=== PATIENT | female | born 1940 | race Caucasian/White ===

== ENCOUNTER → 2016-12-20 | Outpatient (CLI) | payer MEDICARE, OTHER ==
[~2016-12-20] MED LIST: AMLODIPINE10 MG PO; ANUSOL-HC25 MG R; ATENOLOL25 MG PO; ATENOLOL50 M1 PO; AVPAK METFORMI500 MG PO; CALTRATE 600 +1 TAB PO; GLUCOMETER; GLUCTESTSTRIP; HYDROCHLOROTHIA25 M1 PO; LEVEMIR FLEX100 U/ML SC; LISINOPRIL HCTZ1 TA1 PO; LOVASTATIN40 MG PO; NEURONTIN100 MG PO; NEURONTIN300 MG PO; NORVASC5 MG PO; PEN NEEDLE1 EAC4 MC; POTASSIUM CHLOR8 MEQ PO; PRILOSEC40 MG PO; SYNTHROID,LEV100 MCG PO; WALKER; XANAX0.25 MG PO; ZANTAC 150150 MG PO; [UNRECOGNIZED DRUG - OTHER]
== END | disposition home or self-care (01) ==
LOC: ORTHO 02:44
DX: S92.351D Displaced fracture of fifth metatarsal bone, right foot, subsequent encounter for fracture with routine healing (principal); M17.12 Unilateral primary osteoarthritis, left knee; M25.762 Osteophyte, left knee; X58.XXXD Exposure to other specified factors, subsequent encounter

== ENCOUNTER → 2017-02-18 | Outpatient (CLI) | payer MEDICARE, OTHER | END | disposition home or self-care (01) | LOC: RAD 10:12 | DX: R07.9 Chest pain, unspecified (principal); I10 Essential (primary) hypertension; E11.9 Type 2 diabetes mellitus without complications ==

== ENCOUNTER → 2017-10-22 | Outpatient (CLI) | payer MEDICARE, OTHER | END | disposition home or self-care (01) | LOC: LAB 14:23 | DX: J02.9 Acute pharyngitis, unspecified (principal) ==

== ENCOUNTER → 2018-01-21 | Day surgery (SDC) | payer MEDICARE, OTHER ==
[~2018-01-21] VITALS: Ht 154.9 cm; Wt 75.7 kg
--- NOTE | ~2018-01-21 | O ---
[place], [place] OPERATIVE NOTE NAME: DEXTER ALCARAZ [facility] [id number] UNIT #: [id number] ROOM: DOCTOR: GENIE HONG MD BIRTHDATE: [birth year] DOS: 01/21/2018 PREOPERATIVE DIAGNOSIS: Cataract, left eye. POSTOPERATIVE DIAGNOSIS: Cataract, left eye. OPERATION: Extracapsular cataract extraction by phacoemulsification with posterior chamber intraocular lens implantation, left eye. ANESTHESIA: Monitored standby. OPERATIVE FINDINGS AND PROCEDURE: 2% Xylocaine topical anesthetic gel was applied to the eye in the preop area. The patient was taken to the operating room and prepped and draped in the standard fashion for sterile intraocular surgery. A time out procedure was performed verifying correct patient, correct site and corrects lens with Aditya Hong M.D. The operating microscope was swung into position and the lid speculum was inserted. Using a Negar paracentesis blade, a paracentesis was made through clear cornea. Viscoelastic was used to fill the anterior chamber. Using a metal keratome a 2.4 mm self-sealing clear corneal cataract incision was made temporally at the limbus. Using a pre-bent 25 gauge cystotome needle, a standard continuous curvilinear capsulorrhexis was performed. The anterior capsule was removed with forceps. The lens nucleus was hydrodissected and phacoemulsified in the posterior chamber. Cortical material was removed with the irrigation aspiration hand piece and the posterior capsule was then polished with a curet under irrigation. The posterior chamber and capsular bag were filled with viscoelastic. A posterior chamber intraocular lens manufactured by: [employer], Model #[id number], and 22.0 diopters in strength were then inserted into the posterior chamber and within the capsular bag using the lens cartridge and injector system. Viscoelastic was removed using the irrigation aspiration handpiece. The anterior chamber was filled with balanced salt solution through the paracentesis. Both the paracentesis site and cataract incisions were hydrated with BSS and verified to be water-tight and self-sealing. The incision checked to be water-tight using a Weck-Daiana sponge. The integrity of the cataract wound and ocular tension were checked. Lid speculum and drapes were removed. The patient was transferred from the operating room to the recovery room in satisfactory condition. [place], [place] OPERATIVE NOTE NAME: DEXTER ALCARAZ UNIT #: [id number] ROOM: DOCTOR: GENIE HONG MD BIRTHDATE: [birth year] GENIE HONG MD CM:OPRECORD:OPERATIVE NOTE 1004 1032 GENIE HONG MD 01/21/18 1031 interface
[2018-01-21 08:30] VITALS: BP 175/70
[2018-01-21 09:54] VITALS: BP 164/85
[2018-01-21 10:09] VITALS: BP 170/55
[2018-01-21 10:19] VITALS: BP 160/70
== END | disposition home or self-care (01) ==
LOC: SDC 01-16 13:15
DX: E11.36 Type 2 diabetes mellitus with diabetic cataract (principal); H25.812 Combined forms of age-related cataract, left eye; I10 Essential (primary) hypertension; E78.00 Pure hypercholesterolemia, unspecified; K21.9 Gastro-esophageal reflux disease without esophagitis; F41.9 Anxiety disorder, unspecified; Z90.710 Acquired absence of both cervix and uterus; Z90.49 Acquired absence of other specified parts of digestive tract; Z79.899 Other long term (current) drug therapy; M81.0 Age-related osteoporosis without current pathological fracture; Z82.49 Family history of ischemic heart disease and other diseases of the circulatory system; Z80.9 Family history of malignant neoplasm, unspecified

== ENCOUNTER → 2018-01-28 | Day surgery (SDC) | payer MEDICARE, OTHER ==
[~2018-01-28] VITALS: Ht 154.9 cm; Wt 75.7 kg
--- NOTE | ~2018-01-28 | O ---
[place], [place] OPERATIVE NOTE NAME: DEXTER ALCARAZ UNIT #: [id number] ROOM: DOCTOR: GENIE HONG MD BIRTHDATE: [birth year] DOS: 01/28/2018 PREOPERATIVE DIAGNOSIS: Cataract, right eye. POSTOPERATIVE DIAGNOSIS: Cataract, right eye. OPERATION: Extracapsular cataract extraction by phacoemulsification with posterior chamber intraocular lens implantation, right eye. ANESTHESIA: Monitored standby. OPERATIVE FINDINGS AND PROCEDURE: 2% Xylocaine topical anesthetic gel was applied to the eye in the preop area. The patient was taken to the operating room and prepped and draped in the standard fashion for sterile intraocular surgery. A time out procedure was performed verifying correct patient, correct site and corrects lens with Aditya Hong M.D. The operating microscope was swung into position and the lid speculum was inserted. Using a Negar paracentesis blade, a paracentesis was made through clear cornea. Viscoelastic was used to fill the anterior chamber. Using a metal keratome a 2.4 mm self-sealing clear corneal cataract incision was made temporally at the limbus. Using a pre-bent 25 gauge cystotome needle, a standard continuous curvilinear capsulorrhexis was performed. The anterior capsule was removed with forceps. The lens nucleus was hydrodissected and phacoemulsified in the posterior chamber. Cortical material was removed with the irrigation aspiration hand piece and the posterior capsule was then polished with a curet under irrigation. The posterior chamber and capsular bag were filled with viscoelastic. A posterior chamber intraocular lens manufactured by: [employer], Model #[id number], and 23.5 diopters in strength were then inserted into the posterior chamber and within the capsular bag using the lens cartridge and injector system. Viscoelastic was removed using the irrigation aspiration handpiece. The anterior chamber was filled with balanced salt solution through the paracentesis. Both the paracentesis site and cataract incisions were hydrated with BSS and verified to be water-tight and self-sealing. The incision checked to be water-tight using a Weck-Daiana sponge. The integrity of the cataract wound and ocular tension were checked. Lid speculum and drapes were removed. The patient was transferred from the operating room to the recovery room in satisfactory condition. [place], [place] OPERATIVE NOTE NAME: DEXTER ALCARAZ UNIT #: [id number] ROOM: DOCTOR: GENIE HONG MD BIRTHDATE: [birth year] GENIE HONG MD CM:OPRECORD:OPERATIVE NOTE [id number] 1004 GENIE HONG MD 01/28/18 1003 interface
[2018-01-28 08:24] VITALS: BP 190/84
[2018-01-28 09:43] VITALS: BP 160/73
[2018-01-28 10:00] VITALS: BP 151/72
[2018-01-28 10:12] VITALS: BP 181/71
== END | disposition home or self-care (01) ==
LOC: SDC 01-26 11:00
DX: E11.36 Type 2 diabetes mellitus with diabetic cataract (principal); H25.811 Combined forms of age-related cataract, right eye; I10 Essential (primary) hypertension; K21.9 Gastro-esophageal reflux disease without esophagitis; E78.00 Pure hypercholesterolemia, unspecified; E07.9 Disorder of thyroid, unspecified; F41.8 Other specified anxiety disorders; M81.0 Age-related osteoporosis without current pathological fracture; Z88.0 Allergy status to penicillin; Z88.2 Allergy status to sulfonamides; Z82.49 Family history of ischemic heart disease and other diseases of the circulatory system; Z79.899 Other long term (current) drug therapy; Z90.710 Acquired absence of both cervix and uterus; Z90.49 Acquired absence of other specified parts of digestive tract; Z98.890 Other specified postprocedural states

== ENCOUNTER 2018-02-05 07:07 | Inpatient (IN) | payer MEDICARE, OTHER ==
[~2018-02-05] VITALS: Ht 167.6 cm; Wt 87.1 kg
[2018-02-05] VITALS (8 sets, daily range): BP systolic 104–178; BP diastolic 60–98
--- NOTE | ~2018-02-05 | PR ---
[place], [place] PROGRESS NOTE NAME: DEXTER ALCARAZ UNIT #: [id number] ROOM: 531 DOCTOR: HELDER LYLE MD BIRTHDATE: [birth year] DOS: 02/08/2018 SUBJECTIVE: The patient was seen at her bedside today, 02/08/2018, with her and daughter in attendance. She denies any complaints today and states that she is breathing well. She denies any chest discomfort. Her legs are less swollen and she denies any palpitations. PHYSICAL EXAMINATION: VITAL SIGNS: Her pulse is 90 and regular, blood pressure is 125/50. She weighs 87.1 kg and has a body mass index of 31. NECK: Supple. She has no jugular distention. Carotids are full without bruits. LUNGS: Respirations are unlabored. Her chest is clear to auscultation and percussion. She has no presacral edema. HEART: Has a regular rhythm with a fourth heart sound, but no third heart sound or murmur. ABDOMEN: Soft and normally active without masses or tenderness. EXTREMITIES: Showed no ankle edema today. LABORATORY DATA: Echocardiogram done 02/05/2018 showed normal left ventricular size with mild global left ventricular hypokinesis. There was no definite regional wall motion abnormality. She had stage 1 diastolic relaxation abnormalities with an ejection fraction of 50%. The left atrium was moderately enlarged with mild mitral insufficiency, mild tricuspid insufficiency and mildly elevated right ventricular systolic pressures. IMPRESSION: 1. Congestive heart failure, which has improved with diuresis. The patient does not have any history of this previously. 2. Elevation in troponin in a pattern suggestive of an acute myocardial injury. The cause of this is not yet known. 3. Type 2 diabetes mellitus. 4. Hypothyroidism. 5. Gastroesophageal reflux disease. 6. Essential hypertension. PLAN: The patient seems to be doing well on her current medical regimen. A pharmacologic stress test is scheduled for 02/09/2018 and further recommendations will depend upon results of that examination. I thank Dr. Rivas for asking our advice regarding the patient's care. [place], [place] PROGRESS NOTE NAME: DEXTER ALCARAZ UNIT #: [id number] ROOM: 531 DOCTOR: HELDER LYLE MD BIRTHDATE: [birth year] HELDER LYLE MD CM:PNRINKU [id number] HELDER LYLE MD 02/08/18 1516 interface
--- NOTE | ~2018-02-05 | PR ---
[place], [place] PROGRESS NOTE NAME[id number] UNIT #: [id number] ROOM: 531 DOCTOR: HELDER LYLE MD BIRTHDATE: [birth year] DOS: 02/07/2018 SUBJECTIVE: The patient was seen at her bedside today 02/07/2018 with her and 2 daughters in attendance. She states that she is feeling well. She states that she is breathing better and denies ever having any chest discomfort. Her left leg is still swollen, presumably from her complicated Farmer's cyst. PHYSICAL EXAMINATION: VITAL SIGNS: Today, her pulse is 79 and regular, blood pressure is 108/48. She is afebrile. She weighs 87.1 kg and has a body mass index of 31. NECK: Supple. She has mild jugular distention with hepatojugular reflux. Carotids are full. LUNGS: Respirations are unlabored. She has decreased breath sounds at the bases, but no wheezes or rales. HEART: Has a regular rhythm. She has a fourth heart sound, but no third heart sound or murmur. ABDOMEN: Benign. EXTREMITIES: Showed trace ankle edema. Echocardiogram done on 02/05/2018 showed normal left ventricular size with mild global left ventricular hypokinesis. No definite regional wall motion abnormalities were present. She had stage 1 diastolic relaxation abnormalities and an ejection fraction of 50%. She had a moderately enlarged left atrium, mild mitral insufficiency, mild tricuspid insufficiency and mildly elevated right ventricular systolic pressures. LABORATORY DATA: Troponin levels on admission were normal, but yolanda to a peak of 0.257 and subsequently fell to 0.113. Electrolytes today show sodium 139, potassium 3.1, BUN 26, creatinine 1.08. IMPRESSION: 1. Congestive heart failure. This is improving with diuresis. The patient does not have a history of this. 2. Elevation in troponin in a pattern suggesting an acute myocardial injury. The cause of this is not yet known. 3. Type 2 diabetes mellitus. 4. Hypothyroidism. 5. Gastroesophageal reflux disease. 6. Essential hypertension. PLAN: We will continue to treat the patient with diuretics and beta blockers. For now, we will continue a low dose of lisinopril, but may increase it further depending on the results of her stress test. She will remain on topical nitrates and aspirin. A pharmacologic stress test is scheduled for 02/09/2018 and further recommendations depend upon the results of that exam. I thank Dr. Rivas for asking our advice regarding the patient's care. [place], [place] PROGRESS NOTE NAME: DEXTER ALCARAZ UNIT #: [id number] ROOM: 531 DOCTOR: HELDER LYLE MD BIRTHDATE: [birth year] HELDER LYLE MD CM:PNTRANS 1305 1404 HELDER LYLE MD 02/07/18 1403 interface
--- NOTE | ~2018-02-05 | PR ---
[place], [place] PROGRESS NOTE NAME: DEXTER ALCARAZ UNIT #: [id number] ROOM: 531 DOCTOR: HELDER LYLE MD BIRTHDATE: [birth year] DOS: 02/09/2018 SUBJECTIVE: The patient was seen this morning at her bedside with her and daughter in attendance. Overnight, she did develop atrial fibrillation with a rapid ventricular response. Heart rates in the 170 range were recorded. She was placed on increasing doses of metoprolol and oral diltiazem and was given a loading dose of digoxin intravenously. IV diltiazem was ordered; however, it could not be administered because of a nationwide shortage. I have spoken to the pharmacist who informs me that there is 1 vial left in the entire hospital. This morning, the patient's heart rate is better controlled, although she remains in atrial fibrillation. She did have a brief episode of chest pain through the night, but this has resolved. Because she was unstable through the evening, I did cancel her stress test for today. PHYSICAL EXAMINATION: VITAL SIGNS: Today her pulse is currently about 100 to 110 and irregularly irregular, blood pressure is 104/73. She is afebrile. She weighs 87.1 kg and has a body mass index of 31.0. HEENT: Normocephalic and atraumatic. Extraocular muscles are intact. NECK: Supple. She has mild jugular distention with hepatojugular reflux. Carotids are full. LUNGS: Respirations are unlabored. She has decreased breath sounds at the bases, but no wheezes or rales. HEART: Has an irregularly irregular rhythm. There are no murmurs or gallops. ABDOMEN: Benign. EXTREMITIES: Showed trace edema on the left, but not on the right. LABORATORY DATA: I reviewed her monitor strips and her heart rate is gradually slowing, but she does remain in atrial fibrillation. Hemoglobin is 8.4 and fairly stable, white count is 9600, platelet count 224,000. Sodium is 142, potassium 3.5, BUN 28, creatinine 0.85. IMPRESSION: 1. Newly documented atrial fibrillation. It is very likely that the patient has had brief episodes of paroxysmal atrial fibrillation prior to admission and these may have triggered her congestive heart failure that prompted the current admission. 2. Mild elevation in troponin. This may be related to a type 2 myocardial infarction or unstable angina. 3. Type 2 diabetes mellitus. 4. Hypothyroidism. 5. Gastroesophageal reflux disease. 6. Essential hypertension. PLAN: We will continue to adjust her medications to control her heart rate today. She is currently on therapeutic Lovenox injections. Once her evaluation has been completed, we will switch her over to a direct acting oral anticoagulant for long-term stroke prophylaxis. Her CHADS-VASc score is 6, [place], [place] PROGRESS NOTE NAME: DEXTER ALCARAZ UNIT #: [id number] ROOM: 531 DOCTOR: HELDER LYLE MD BIRTHDATE: [birth year] predicting a 10% risk of stroke in the next year without systemic anticoagulation. I thank Dr. Rivas for asking our advice regarding her care. HELDER LYLE MD CM:PNTRANS 0953 1008 HELDER LYLE MD 02/12/18 1442 interface
--- NOTE | ~2018-02-05 | PR ---
[place], [place] PROGRESS NOTE [id number] UNIT #: [id number] ROOM: 531 DOCTOR: LARON BIRD MD BIRTHDATE: [birth year] DOS: SUBJECTIVE: The patient gas admitted to the hospital with acute congestive heart failure with hypokinesia of the heart with some chronic renal failure. The patient had echocardiogram done, which showed the stage 1 diastolic relaxation abnormality and ejection fraction of only 50%, moderately enlarged left atrium, mitral valve insufficiency. Her troponin level is normal. Congestive heart failure is improving. The patient is breathing quite comfortably with no chest pain and she does not seem to be in any distress. She is also having type 2 diabetes mellitus with hypothyroidism, GERD, essential hypertension and also having severe osteoarthritis of the left knee, for which she is complaining of pain in her knee. Her blood culture today did not show any bacteria. Comprehensive metabolic profile showed glucose 102, BUN 26, creatinine 1.8 and GFR 49, indicating renal failure. Her potassium is 3.1. She is getting supplemental potassium. Calcium is 7.8, total protein is 5.6, albumin 2.9, indicating hypoproteinemia and albuminemia. Her CBC showed white count 30,500, hemoglobin 8.1, hematocrit 28.5 and having hypochromic anemia, 82% neutrophils, 9% lymphocyte. Her hemoglobin Ac is 6.4. OBJECTIVE: HEART: Regular with soft systolic murmur. LUNGS: Some basal crepitation. ABDOMEN: Soft. Liver, spleen not palpable. EXTREMITIES: Having swelling of the left knee with movement ____. LARON BIRD MD CM:PNTRANS 03 19 LARON BIRD MD 02/07/182118 interface
--- NOTE | ~2018-02-05 | O ---
[place], [place] OPERATIVE NOTE NAME: DEXTER ALCARAZ UNIT #: [id number] ROOM: 531 DOCTOR: KRISSY BORGES MD BIRTHDATE: [birth year] DOS: 02/13/2018 PREOPERATIVE DIAGNOSIS: Left knee osteoarthritis. POSTOPERATIVE DIAGNOSIS: Left knee osteoarthritis. PROCEDURE: Left knee intra-articular injection with 80 mg of Depo-Medrol. INDICATIONS: This is a pleasant 77-year-old female with left knee osteoarthritis. I did talk to her about the risks and benefits of steroid injection. Risks include infection, worsening of symptoms, failure to relieve symptoms, need for additional procedures. Benefits include pain relief. We had a full risks and benefit discussion and informed consent was signed for left knee intra-articular steroid injection. DESCRIPTION OF PROCEDURE: This was performed in the patient's hospital room, room 531, at the bedside. The nurse was with me. The patient was supine with a bump under the knee. A superior lateral approach was used. The skin was cleaned with ChloraPrep and alcohol. Under sterile conditions, an 18-gauge needle was inserted into the left knee joint. I did aspirate back some blood, indicating a hematoma in the knee. At this point, 80 mg of Depo-Medrol was injected in the left knee. A sterile dressing was then applied. She tolerated the procedure well with no immediate complications. She can follow up in the orthopedic clinic on an as needed basis. She is weightbearing as tolerated in the left leg. Krissy Borges MD CM:OPRECORD:OPERATIVE NOTE 1034 1421 KRISSY BORGES MD 02/13/18 1420 interface
--- NOTE | ~2018-02-05 | CON ---
[place], [place] REPORT OF CONSULTATION NAME: DEXTER ALCARAZ UNIT #: [id number] ROOM: 531 DOCTOR: KRISSY BORGES MD BIRTHDATE: [birth year] DOS: 02/13/2018 INPATIENT CONSULT NOTE. CHIEF COMPLAINT: Left knee pain. HISTORY OF PRESENT ILLNESS: This is a pleasant 77-year-old female with left knee pain. She was admitted to the hospital with heart failure. She has had left knee pain in the past. No specific reinjury to the knee. No fevers. No chills. Pain is on the inside of the knee, there is occasional clicking. It hurts worse to walk. She feels better with rest. Pain is a dull aching. This morning it is about a 4-5 on a scale of 1-10, 10 being the worst. She does have a history of diabetes. She has had prior injections in the knee, which have been somewhat effective for her. PAST MEDICAL AND SURGICAL HISTORY: 1. Chronic knee pain. 2. Diabetes. 3. Hypertension. 4. Hyperlipidemia. 5. Hypothyroid. 6. Neuropathy. 7. Obesity. 8. Sciatica. 9. Vitamin D deficiency. 10. Status post bilateral cataract extraction. 11. Status post cholecystectomy. 12. Status post hysterectomy. ALLERGY TO MEDICINES: PENICILLINS, SULFA, ASPIRIN. SOCIAL HISTORY: No tobacco use. No illicit drug use. REVIEW OF SYSTEMS: No unexpected weight loss, no weight gain. No fevers, chills or fatigue. PHYSICAL EXAMINATION: GENERAL APPEARANCE: She is well. She is oriented to person, place, and time. Her mood is euthymic. Current affect is appropriate. EXTREMITIES: Exam of the left knee; she does have a small effusion. She has medial joint line tenderness. Knee range of motion is from 5 degrees to 105 degrees. Knee is stable to anterior, posterior, varus, valgus stresses. She has 4/5 strength with resisted flexion and extension. Skin is intact about the knee. All compartments in the leg and lower leg are soft. Distally, she can flex and extend the ankle. I examined the right knee. No tenderness to palpation; no effusion; full range of motion; normal anterior, posterior, varus, valgus stability. Radiographs of the left knee are reviewed showing end-stage degenerative [place], [place] REPORT OF CONSULTATION NAME: DEXTER ALCARAZ UNIT #: [id number] ROOM: 531 DOCTOR: KRISSY BORGES MD BIRTHDATE: [birth year] arthritis. LABORATORY DATA: White count 7.8, H and H is 8.9 and 30.9, platelets are 260. ASSESSMENT: A 77-year-old female with left knee osteoarthritis pain. PLAN: I talked to her about interventions. I think she would benefit from a left knee intra-articular steroid injection. She is open to this as well. Depo-Medrol was ordered through the nursing staff. Risks of injection including infection, worsening of symptoms, failure to relieve symptoms, and other risks. The patient did give me verbal consent to inject the left knee with steroid. I will proceed when the materials are ready. She had the opportunity to ask me questions and she understands and agrees with the treatment plan as I have outlined it. Krissy Borges MD CM:CONSTR:REPORT OF CONSULTATION 0959 02/13/18 1736 interface
--- NOTE | ~2018-02-05 | PR ---
[place], [place] PROGRESS NOTE NAME: DEXTER ALCARAZ UNIT #: [id number] ROOM: 531 DOCTOR: LARON BIRD MD BIRTHDATE: [birth year] DOS: SUBJECTIVE: The patient has been admitted to hospital with acute congestive heart failure with hypokinesia and also having chronic renal failure. She is feeling somewhat better than before. Her chest x-ray done shows blunting of left costophrenic angle, lungs otherwise clear. No pneumothorax. She is having cardiac enlargement, tiny left pleural effusion which is better than before. Her CBC showed white count 9600, hemoglobin 8.4, hematocrit 28.7, having chronic hypochromic anemia. Basic metabolic profile shows improvement in her renal function. Her BUN is 28, which is much better than before. Creatinine 0.85, which is much better than before. CO2 35, calcium 7.8. OBJECTIVE: VITAL SIGNS: Her blood pressure is 125/53, pulse 82, respirations 20, temperature 98.5. HEART: soft systolic murmur. LUNGS: She is having some bases, decreased sounds in the base of the lung. LARON BIRD MD CM:PNTRANS 0939 01 LARON BIRD MD 02/08/182000 interface
[2018-02-05 07:50] LABS: BASO # 0.1 10*3/uL (0.0-0.1); EOS # 0.3 10*3/uL (0.0-0.4); EOS % 2.1 % (1.0-4.0); HEMATOCRIT 39.9 % (37.0-47.0); HEMOGLOBIN 10.6 g/dl (12.0-16.0); LYMPH # 2.4 10*3/uL (1.3-4.4); MEAN CELL VOLUME 74.7 fl (81.0-99.0); MEAN CORPUSCULAR HGB 19.9 pg (27.0-31.0); MEAN CORPUSCULAR HGB CONC 26.6 g/dl (33.0-37.0); MEAN PLATELET VOLUME 10.7 fl (9.6-12.3); MONO % 8.2 % (3.0-9.0); NEUT # 8.7 10*3/uL (2.3-7.9); NEUT % 69.4 % (47.0-73.0); PLATELET COUNT AUTOMATED 403 10*3/uL (130-400); RED BLOOD COUNT 5.34 10*6/uL (4.10-5.10); RED CELL DISTRI WIDTH 18.9 % (0-14.5); WHITE BLOOD COUNT 12.6 10*3/uL (4.8-10.8)
[2018-02-05 08:04] LABS: ALBUMIN 3.4 gm/dl (3.1-4.5); ALKALINE PHOSPHATASE 79 U/L (45-117); BUN 15 mg/dl (7-24); CHLORIDE 105 mmol/L (98-107); LIPASE 72 U/L (73-393); POTASSIUM 4.2 mmol/L (3.5-5.1); SGOT/AST 32 IU/L (3-35); SGPT/ALT 21 U/L (12-78); SODIUM 140 mmol/L (136-145); TOTAL PROTEIN 7.1 gm/dL (6.4-8.2)
[2018-02-05 08:08] LABS: TROPONIN I < 0.015 ng/ml (<0.045)
[2018-02-05 08:22] LABS: ACT PARTIAL THROMBO TIME 22.9 SECONDS (20.8-31.5)
[2018-02-05 11:43] LABS: ABG BASE EXCESS 1.9 mmol/L (-2.0-2.0); ABG HCO3 26.5 mmol/l (22-26); ABG O2 SATURATION 95.4 % (95-97); ARTERIAL BLOOD GAS PCO2 42.4 mmHg (35-45); ARTERIAL BLOOD GAS PH 7.409 (7.35-7.45)
[2018-02-05 13:52] LABS: BILIRUBIN NEGATIVE (NEGATIVE); BLOOD NEGATIVE (NEGATIVE); CLARITY CLEAR (CLEAR); COLOR YELLOW (YELLOW); GLUCOSE NEGATIVE (NEGATIVE); KETONE NEGATIVE (NEGATIVE); LEUKO ESTERASE NEGATIVE (NEGATIVE); NITRITE NEGATIVE (NEGATIVE); UROBILINOGEN 0.2 E.U./dl (0.2-1.0)
[2018-02-05 14:19] LABS: EPITHELIAL CELLS 0-2; RBC 0-2 rbc/hpf (0-2); WBC 0-2 wbc/hpf (0-5)
[2018-02-06] VITALS (8 sets, daily range): BP systolic 79–129; BP diastolic 26–69
[2018-02-06 06:27] LABS: BASO # 0.1 10*3/uL (0.0-0.1); BASO % 0.6 % (0.0-1.0); EOS # 0.1 10*3/uL (0.0-0.4); EOS % 0.4 % (1.0-4.0); LYMPH # 1.6 10*3/uL (1.3-4.4); LYMPH % 11.7 % (27.0-41.0); MEAN CELL VOLUME 74.4 fl (81.0-99.0); MEAN CORPUSCULAR HGB 20.3 pg (27.0-31.0); MEAN CORPUSCULAR HGB CONC 27.3 g/dl (33.0-37.0); MONO # 1.2 10*3/uL (0.1-1.0); MONO % 8.7 % (3.0-9.0); NEUT % 78.2 % (47.0-73.0); PLATELET COUNT AUTOMATED 328 10*3/uL (130-400); RED BLOOD COUNT 3.94 10*6/uL (4.10-5.10); RED CELL DISTRI WIDTH 18.4 % (0-14.5)
[2018-02-06 06:35] LABS: HEMATOCRIT 29.3 % (37.0-47.0)
[2018-02-06 06:44] LABS: ACT PARTIAL THROMBO TIME 26.9 SECONDS (20.8-31.5); INTERNATIONAL NORM RATIO 1.1 (2.0-3.5)
[2018-02-06 06:51] LABS: ALBUMIN 2.9 gm/dl (3.1-4.5); ALKALINE PHOSPHATASE 66 U/L (45-117); BUN 20 mg/dl (7-24); CHLORIDE 102 mmol/L (98-107); CHOLESTEROL 68 mg/dL (<200); CREATININE 0.67 mg/dL (0.55-1.02); FREE T4 1.54 ng/dl (0.76-1.46); HDL CHOLESTEROL 41 mg/dl (40-60); LDL CHOLESTEROL 10 mg/dL (9-159); SGOT/AST 20 IU/L (3-35); SGPT/ALT 15 U/L (12-78); SODIUM 140 mmol/L (136-145); TOTAL PROTEIN 5.8 gm/dL (6.4-8.2); TRIGLYCERIDES 86 mg/dl (<150); VLDL CHOLESTEROL 17 mg/dL (6-40)
[2018-02-06 08:32] LABS: VITAMIN D, 25-HYDROXY 112.1 ng/mL (30-100)
[2018-02-06] MEDS ORDERED: LEVOTHYROXINE100 MC1 PO (11:05)
[2018-02-06] MEDS ORDERED: VITAMIN D50000 UNIT PO (11:06)
[2018-02-07] VITALS (12 sets, daily range): BP systolic 108–128; BP diastolic 46–87
[2018-02-07 00:09] LABS: HEMATOCRIT 27.3 % (37.0-47.0); HEMOGLOBIN 8.1 g/dl (12.0-16.0)
[2018-02-07 02:22] LABS: HEMATOCRIT 26.5 % (37.0-47.0); HEMOGLOBIN 7.6 g/dl (12.0-16.0)
[2018-02-07 06:51] LABS: HEMATOCRIT 28.5 % (37.0-47.0); HEMOGLOBIN 8.1 g/dl (12.0-16.0); MEAN CORPUSCULAR HGB 21.6 pg (27.0-31.0); MEAN CORPUSCULAR HGB CONC 28.4 g/dl (33.0-37.0); MEAN PLATELET VOLUME 11.7 fl (9.6-12.3); PLATELET COUNT AUTOMATED 292 10*3/uL (130-400); RED BLOOD COUNT 3.75 10*6/uL (4.10-5.10); RED CELL DISTRI WIDTH 18.6 % (0-14.5); WHITE BLOOD COUNT 13.5 10*3/uL (4.8-10.8)
[2018-02-07 07:09] LABS: ALBUMIN 2.9 gm/dl (3.1-4.5); CREATININE 1.08 mg/dL (0.55-1.02); PHOSPHOROUS 4.5 mg/dL (2.5-4.9); POTASSIUM 3.1 mmol/L (3.5-5.1); TOTAL PROTEIN 5.6 gm/dL (6.4-8.2)
[2018-02-07 07:11] LABS: MICROCYTOSIS SLIGHT; PLATELET SUFFICIENCY NORMAL (NORMAL); POLYCHROMASIA SLIGHT; TOTAL CELLS COUNTED 100 #CELLS
[2018-02-08] VITALS: BP 112/46
[2018-02-08 06:30] VITALS: BP 128/54
[2018-02-08 06:46] LABS: BASO # 0.1 10*3/uL (0.0-0.1); BASO % 0.6 % (0.0-1.0); EOS # 0.1 10*3/uL (0.0-0.4); EOS % 0.7 % (1.0-4.0); HEMATOCRIT 28.7 % (37.0-47.0); HEMOGLOBIN 8.4 g/dl (12.0-16.0); LYMPH # 0.9 10*3/uL (1.3-4.4); LYMPH % 9.3 % (27.0-41.0); MEAN CELL VOLUME 77.8 fl (81.0-99.0); MEAN CORPUSCULAR HGB 22.8 pg (27.0-31.0); MEAN CORPUSCULAR HGB CONC 29.3 g/dl (33.0-37.0); MONO # 1.5 10*3/uL (0.1-1.0); MONO % 15.3 % (3.0-9.0); NEUT % 73.6 % (47.0-73.0); PLATELET COUNT AUTOMATED 224 10*3/uL (130-400); RED BLOOD COUNT 3.69 10*6/uL (4.10-5.10); RED CELL DISTRI WIDTH 18.8 % (0-14.5); WHITE BLOOD COUNT 9.6 10*3/uL (4.8-10.8)
[2018-02-08 07:03] LABS: BUN 28 mg/dl (7-24); CHLORIDE 101 mmol/L (98-107); CREATININE 0.85 mg/dL (0.55-1.02); POTASSIUM 3.5 mmol/L (3.5-5.1); SODIUM 142 mmol/L (136-145)
[2018-02-08 08:00] VITALS: BP 125/53
[2018-02-08 11:55] VITALS: BP 125/50
[2018-02-08 16:00] VITALS: BP 119/37
[2018-02-08 20:00] VITALS: BP 125/70
[2018-02-09 00:35] VITALS: BP 110/98
[2018-02-09 08:00] VITALS: BP 104/73
[2018-02-09 12:00] VITALS: BP 114/52
[2018-02-09 16:00] VITALS: BP 117/92
[2018-02-09 20:00] VITALS: BP 113/72
[2018-02-10] VITALS: BP 119/65
[2018-02-10 04:00] VITALS: BP 95/50
[2018-02-10 06:56] LABS: CREATININE 1.16 mg/dL (0.55-1.02); POTASSIUM 3.6 mmol/L (3.5-5.1)
[2018-02-10 07:08] LABS: DIGOXIN 1.36 ng/ml (0.8-2.0)
[2018-02-10 08:00] VITALS: BP 95/43
[2018-02-10 16:00] VITALS: BP 125/54
[2018-02-10 20:00] VITALS: BP 124/63
[2018-02-11] VITALS: BP 102/51
[2018-02-11 06:32] LABS: BASO # 0.1 10*3/uL (0.0-0.1); BASO % 0.6 % (0.0-1.0); EOS # 0.1 10*3/uL (0.0-0.4); EOS % 0.8 % (1.0-4.0); HEMATOCRIT 31.3 % (37.0-47.0); LYMPH # 1.2 10*3/uL (1.3-4.4); LYMPH % 13.6 % (27.0-41.0); MEAN CELL VOLUME 78.3 fl (81.0-99.0); MEAN CORPUSCULAR HGB 22.5 pg (27.0-31.0); MEAN CORPUSCULAR HGB CONC 28.8 g/dl (33.0-37.0); MEAN PLATELET VOLUME 11.5 fl (9.6-12.3); MONO # 1.2 10*3/uL (0.1-1.0); MONO % 12.9 % (3.0-9.0); NEUT # 6.4 10*3/uL (2.3-7.9); NEUT % 71.7 % (47.0-73.0); PLATELET COUNT AUTOMATED 265 10*3/uL (130-400); RED CELL DISTRI WIDTH 20.2 % (0-14.5)
[2018-02-11 06:37] LABS: BUN 33 mg/dl (7-24); CHLORIDE 102 mmol/L (98-107); CREATININE 0.97 mg/dL (0.55-1.02); POTASSIUM 3.3 mmol/L (3.5-5.1); SODIUM 142 mmol/L (136-145)
[2018-02-11 08:00] VITALS: BP 98/62
[2018-02-11 12:00] VITALS: BP 90/50
[2018-02-11 16:00] VITALS: BP 105/53
[2018-02-11 20:00] VITALS: BP 112/51
[2018-02-12] VITALS: BP 90/56
[2018-02-12 05:37] LABS: BUN 33 mg/dl (7-24); CHLORIDE 103 mmol/L (98-107); CREATININE 1.06 mg/dL (0.55-1.02); IRON 49 ug/dL (50-170); POTASSIUM 3.6 mmol/L (3.5-5.1); SODIUM 143 mmol/L (136-145); TOTAL IRON BINDING CAPACITY 310 ug/dl (250-450)
[2018-02-12 06:21] LABS: BASO # 0.1 10*3/uL (0.0-0.1); BASO % 0.6 % (0.0-1.0); EOS # 0.1 10*3/uL (0.0-0.4); EOS % 1.7 % (1.0-4.0); HEMATOCRIT 30.9 % (37.0-47.0); HEMOGLOBIN 8.9 g/dl (12.0-16.0); LYMPH # 1.6 10*3/uL (1.3-4.4); LYMPH % 19.9 % (27.0-41.0); MEAN CELL VOLUME 79.2 fl (81.0-99.0); MEAN CORPUSCULAR HGB 22.8 pg (27.0-31.0); MEAN CORPUSCULAR HGB CONC 28.8 g/dl (33.0-37.0); MEAN PLATELET VOLUME 11.9 fl (9.6-12.3); MONO % 13.4 % (3.0-9.0); NEUT % 64.1 % (47.0-73.0); PLATELET COUNT AUTOMATED 260 10*3/uL (130-400); RED CELL DISTRI WIDTH 20.8 % (0-14.5); WHITE BLOOD COUNT 7.8 10*3/uL (4.8-10.8)
[2018-02-12 08:00] VITALS: BP 133/72
[2018-02-12 12:00] VITALS: BP 109/51
[2018-02-12 16:00] VITALS: BP 95/55
[2018-02-12 20:00] VITALS: BP 115/63
[2018-02-13] VITALS: BP 100/58
[2018-02-13 08:00] VITALS: BP 126/54
[2018-02-13 12:00] VITALS: BP 128/56; BP 95/48
[2018-02-13] MEDS ORDERED: KLOR-CON M2020 ME1 PO (14:02)
[2018-02-13] MEDS ORDERED: DILTIAZEM 24HR300 M1 PO (14:02)
[2018-02-13] MEDS ORDERED: METOPROLOL SUCC25 M2 PO (14:02)
[2018-02-13] MEDS ORDERED: ELIQUIS5 M1 PO (14:02)
[2018-02-13] MEDS ORDERED: FUROSEMIDE40 MG PO (14:02)
[2018-02-13] MEDS ORDERED: ATORVASTATIN CA80 M1 PO (14:02)
[2018-02-13] MEDS ORDERED: DIGITEK125 MCG PO (14:02)
[2018-02-13] MEDS ORDERED: ASPIRIN ADULT L81 M2 PO (14:02)
== END 2018-02-13 15:30 | disposition home or self-care (01) | DRG 291 ==
LOC: ED 07:07 → EDHOLD 08:51 → 5E 08:51
PROVIDERS: Emergency Medicine; Internal Medicine; Internal Medicine Cardiovascular Disease; Internal Medicine Hospice and Palliative Medicine; Student in an Organized Health Care Education/Training Program
PROC: 30233N1 Transfusion of Nonautologous Red Blood Cells into Peripheral Vein, Percutaneous Approach (ICD-10-PCS; principal; 2018-02-06)
PROC: 3E073KZ Introduction of Other Diagnostic Substance into Coronary Artery, Percutaneous Approach (ICD-10-PCS; 2018-02-10)
PROC: 4A02XM4 Measurement of Cardiac Total Activity, External Approach (ICD-10-PCS; 2018-02-10)
PROC: 3E0U33Z Introduction of Anti-inflammatory into Joints, Percutaneous Approach (ICD-10-PCS; 2018-02-13)
DX: I11.0 Hypertensive heart disease with heart failure (principal); R65.11 Systemic inflammatory response syndrome (SIRS) of non-infectious origin with acute organ dysfunction; I26.09 Other pulmonary embolism with acute cor pulmonale; E44.0 Moderate protein-calorie malnutrition; J90 Pleural effusion, not elsewhere classified; E83.51 Hypocalcemia; E11.42 Type 2 diabetes mellitus with diabetic polyneuropathy; I27.20 Pulmonary hypertension, unspecified; E11.65 Type 2 diabetes mellitus with hyperglycemia; I48.91 Unspecified atrial fibrillation; E87.2 Acidosis; Z98.41 Cataract extraction status, right eye; I50.41 Acute combined systolic (congestive) and diastolic (congestive) heart failure; E66.09 Other obesity due to excess calories; R79.89 Other specified abnormal findings of blood chemistry; D72.810 Lymphocytopenia; D72.9 Disorder of white blood cells, unspecified; D47.3 Essential (hemorrhagic) thrombocythemia; G89.29 Other chronic pain; M25.561 Pain in right knee; E03.9 Hypothyroidism, unspecified; T45.2X5A Adverse effect of vitamins, initial encounter; M17.12 Unilateral primary osteoarthritis, left knee; I25.5 Ischemic cardiomyopathy; D50.9 Iron deficiency anemia, unspecified; K21.9 Gastro-esophageal reflux disease without esophagitis; F41.9 Anxiety disorder, unspecified; M54.30 Sciatica, unspecified side; M71.22 Synovial cyst of popliteal space [Baker], left knee; E78.5 Hyperlipidemia, unspecified; Z90.49 Acquired absence of other specified parts of digestive tract; Z90.710 Acquired absence of both cervix and uterus; Z80.42 Family history of malignant neoplasm of prostate; Z88.0 Allergy status to penicillin; Z79.4 Long term (current) use of insulin; Z68.30 Body mass index [BMI] 30.0-30.9, adult; Z88.2 Allergy status to sulfonamides; Z88.8 Allergy status to other drugs, medicaments and biological substances; Z79.899 Other long term (current) drug therapy; Y92.89 Other specified places as the place of occurrence of the external cause; Z98.42 Cataract extraction status, left eye

== ENCOUNTER 2018-02-18 13:53 | Emergency (ER) | payer MEDICARE, OTHER ==
[~2018-02-18] VITALS: Ht 160 cm; Wt 65.8 kg
[~2018-02-18 13:53] MED LIST changes: +ASPIRIN ADULT L81 M2 PO; +ATORVASTATIN CA80 M1 PO; +DIGITEK125 MCG PO; +DILTIAZEM 24HR300 M1 PO; +ELIQUIS5 M1 PO; +FUROSEMIDE40 MG PO; +KLOR-CON M2020 ME1 PO; +LEVOTHYROXINE100 MC1 PO; +METOPROLOL SUCC25 M2 PO; +VITAMIN D50000 UNIT PO
[2018-02-18 14:30] LABS: HEMATOCRIT 37.4 % (37.0-47.0); HEMOGLOBIN 10.3 g/dl (12.0-16.0); MEAN CELL VOLUME 86.2 fl (81.0-99.0); MEAN CORPUSCULAR HGB 23.7 pg (27.0-31.0); MEAN CORPUSCULAR HGB CONC 27.5 g/dl (33.0-37.0); MEAN PLATELET VOLUME 11.2 fl (9.6-12.3); NUCLEATED RED BLOOD CELL 0.2 % (0.0-0.0); PLATELET COUNT AUTOMATED 475 10*3/uL (130-400); RED BLOOD COUNT 4.34 10*6/uL (4.10-5.10); RED CELL DISTRI WIDTH 26.3 % (0-14.5); WHITE BLOOD COUNT 20.2 10*3/uL (4.8-10.8)
[2018-02-18 14:38] LABS: INTERNATIONAL NORM RATIO 1.2 (2.0-3.5)
[2018-02-18 14:45] LABS: ALBUMIN 3.2 gm/dl (3.1-4.5); CREATININE 1.98 mg/dL (0.55-1.02)
[2018-02-18 14:51] LABS: PLATELET SUFFICIENCY HIGH (NORMAL); TOTAL CELLS COUNTED 100 #CELLS
[2018-02-18 14:52] LABS: BURR CELLS FEW; POLYCHROMASIA SLIGHT
[2018-02-18 15:00] LABS: POTASSIUM 6.8 mmol/L (3.5-5.1)
[2018-02-18 15:28] LABS: TROPONIN I 0.048 ng/ml (<0.045)
[2018-02-18 15:45] VITALS: BP 145/95
[2018-02-18 15:56] LABS: DIGOXIN 2.83 ng/ml (0.8-2.0)
[2018-02-18 16:37] LABS: ALBUMIN 1.7 gm/dl (3.1-4.5); CREATININE 1.74 mg/dL (0.55-1.02); TOTAL PROTEIN 4.3 gm/dL (6.4-8.2)
[2018-02-18 16:58] LABS: POTASSIUM 7.7 mmol/L (3.5-5.1)
[2018-02-18 18:14] VITALS: BP 105/57; BP 135/51; BP 41/24; BP 52/18; BP 69/28; BP 81/33; BP 84/33
== END 2018-02-18 18:14 | disposition expired ==
LOC: ED 13:53
PROVIDERS: Physician Assistant; Student in an Organized Health Care Education/Training Program
DX: T46.0X1A Poisoning by cardiac-stimulant glycosides and drugs of similar action, accidental (unintentional), initial encounter (principal); I46.9 Cardiac arrest, cause unspecified; A41.9 Sepsis, unspecified organism; R65.21 Severe sepsis with septic shock; E87.5 Hyperkalemia; I11.0 Hypertensive heart disease with heart failure; I50.41 Acute combined systolic (congestive) and diastolic (congestive) heart failure; E11.40 Type 2 diabetes mellitus with diabetic neuropathy, unspecified; G89.29 Other chronic pain; E11.00 Type 2 diabetes mellitus with hyperosmolarity without nonketotic hyperglycemic-hyperosmolar coma (NKHHC); I48.91 Unspecified atrial fibrillation; K21.9 Gastro-esophageal reflux disease without esophagitis; E78.5 Hyperlipidemia, unspecified; E03.9 Hypothyroidism, unspecified; I25.5 Ischemic cardiomyopathy; Z86.711 Personal history of pulmonary embolism; Z90.710 Acquired absence of both cervix and uterus; Z90.49 Acquired absence of other specified parts of digestive tract; Z79.899 Other long term (current) drug therapy; Z79.82 Long term (current) use of aspirin; Z79.01 Long term (current) use of anticoagulants; Z79.4 Long term (current) use of insulin; Z87.442 Personal history of urinary calculi; Y92.89 Other specified places as the place of occurrence of the external cause